=== PATIENT | male | born 1970 | race Caucasian/White ===

== ENCOUNTER 2021-06-01 23:27 | Emergency (ER) | payer OTHER, BC ==
[2021-06-01 23:58] VITALS: O2SAT 99
[2021-06-02] MEDS ORDERED: Cleocin Phosphate IV 600 MG/4 ML IM STA
[2021-06-02] MEDS ORDERED: DELTASONE 20 MG PO ONE (00:01)
[2021-06-02] MEDS ORDERED: Cleocin Phosphate IV 600 MG/4 ML ONE (00:05)
[2021-06-02] MEDS ORDERED: DELTASONE 20 MG ONE (00:06)
--- NOTE | 2021-06-02 00:32 | ERPHSYRPT ---
- History of Present Illness Time Seen by Provider: 06/01/21 23:50 Source: patient Exam Limitations: no limitations Patient Subjective Stated Complaint: Patient c/o left lower arm pain. States "I thought I hit it at work last but now I'm not so sure if that is what is going on." Triage Nursing Assessment: Left lower posterior arm is red and warm to touch. Skin intact; no breaks in skin noted. Able to move LUE WNL without difficulties. Radial pulse present. Physician History: Patient is a 50-year-old male presents to our ED for evaluation of a tender raised rash to the dorsal aspect of his left forearm. Patient observed the rash today. Patient denies trauma. No fevers. Patient declined pain medication. Pain described as a mild soreness. No radiation. Pain worse with palpation. No bony tenderness. Patient denies history of the same. Patient voices no other complaints or concerns at this time. Timing/Duration: today Severity: moderate Modifying Factors: Improves With: nothing Associated Symptoms: denies symptoms, No nausea, No vomiting, No diaphoresis, No cough, No fever, No headaches, No syncope Allergies/Adverse Reactions: No Known Drug Allergies Allergy (Unverified 06/01/21 23:45) Hx Tetanus, Diphtheria Vaccination/Date Given: Yes (tetanus unknown) Hx Influenza Vaccination/Date Given: No Hx Pneumococcal Vaccination/Date Given: No Immunizations Up to Date: Yes Travel Risk - International Travel Have you traveled outside of the country in past 3 weeks: No - Coronavirus Screening Are you exhibiting any of the following symptoms?: No Close contact with a COVID-19 positive Pt in past 14-21 Days: No - Vaccine Status Have you recieved a Covid-19 vaccination: Yes Screen Making Supervisor: Moderna - Vaccination Dates Date of 2cond Vaccination (if applicable): 12/07/20 - Review of Systems Constitutional: No Symptoms, No Fever, No Chills Eyes: No Symptoms Ears, Nose, & Throat: No Symptoms Respiratory: No Symptoms, No Cough, No Dyspnea Cardiac: No Symptoms, No Chest Pain, No Edema, No Syncope Abdominal/Gastrointestinal: No Symptoms, No Abdominal Pain, No Nausea, No Vomiting, No Diarrhea Genitourinary Symptoms: No Symptoms, No Dysuria Musculoskeletal: No Symptoms, No Back Pain, No Neck Pain Skin: No Symptoms, No Rash Neurological: No Symptoms, No Dizziness, No Focal Weakness, No Sensory Changes Psychological: No Symptoms Endocrine: No Symptoms Hematologic/Lymphatic: No Symptoms Immunological/Allergic: No Symptoms All Other Systems: Reviewed and Negative - Past Medical History Pertinent Past Medical History: No Neurological History: No Pertinent History ENT History: No Pertinent History Cardiac History: Hypertension Respiratory History: No Pertinent History Endocrine Medical History: No Pertinent History Musculoskeletal History: No Pertinent History GI Medical History: No Pertinent History History: No Pertinent History Psycho-Social History: No Pertinent History Male Reproductive Disorders: No Pertinent History Other Medical History: Abcess on epiglottis in 2002 - Past Surgical History Past Surgical History: Yes Neuro Surgical History: No Pertinent History Cardiac: No Pertinent History Respiratory: Tracheostomy Gastrointestinal: No Pertinent History Genitourinary: No Pertinent History Musculoskeletal: No Pertinent History Male Surgical History: No Pertinent History - Social History Smoking Status: Current every day smoker How long have you smoked: 17 y.o. Exposure to second hand smoke: No Drug Use: none - Nursing Vital Signs Nursing Vital Signs: Initial Vital Signs Temperature 98.1 F 06/01/21 23:47 Pulse Rate 104 H 06/01/21 23:47 Respiratory Rate 20 06/01/21 23:47 Blood Pressure 195/119 06/01/21 23:47 O2 Sat by Pulse Oximetry 99 06/01/21 23:47 Pain Scale Pain Intensity 5 - Physical Exam General Appearance: no apparent distress, alert Eye Exam: PERRL/EOMI, eyes nml inspection Ears, Nose, Throat Exam: normal ENT inspection, TMs normal, pharynx normal, moist mucous membranes Neck Exam: normal inspection, non-tender, supple, full range of motion Respiratory Exam: normal breath sounds, lungs clear, No respiratory distress Cardiovascular Exam: regular rate/rhythm, normal heart sounds, normal peripheral pulses Gastrointestinal/Abdomen Exam: soft, normal bowel sounds, No tenderness, No mass Back Exam: normal inspection, normal range of motion, No CVA tenderness, No vertebral tenderness Extremity Exam: normal inspection, normal range of motion, pelvis stable Neurologic Exam: alert, oriented x 3, cooperative, normal mood/affect, nml cerebellar function, nml station & gait, sensation nml, No motor deficits Skin Exam: normal color, warm, dry, No rash Lymphatic Exam: No adenopathy SpO2: 99 - Course Nursing assessment & vital signs reviewed: Yes Ordered Tests: Medication Summary Discontinued Medications Generic Name Dose Route Start Last Admin Trade Name Freq PRN Reason Stop Dose Admin Clindamycin Phosphate 600 mg 06/02/21 00:00 06/02/21 00:07 Clindamycin Phosphate 600 Mg/4 Ml Vial IM 06/02/21 00:01 600 mg ONCE STA Administration Clindamycin Phosphate Confirm 06/02/21 00:05 Clindamycin Phosphate 600 Mg/4 Ml Vial Administered 06/02/21 00:06 Dose 600 mg .ROUTE .STK-MED ONE Prednisone 60 mg 06/02/21 00:01 06/02/21 00:07 Prednisone 20 Mg Tablet PO 06/02/21 00:02 60 mg STAT ONE Administration Prednisone Confirm 06/02/21 00:06 Prednisone 20 Mg Tablet Administered 06/02/21 00:07 Dose 60 mg .ROUTE .STK-MED ONE - Progress Progress: improved Progress Note: Patient reassessed. He feels well. Patient declined pain medication. Patient received a dose of prednisone as well as intramuscular clindamycin. We are treating for both cellulitis and possible contact dermatitis. A prescription for the same was forwarded to patient's pharmacy. Patient agrees to follow-up with his primary care doctor within 48 hours for reevaluation. Portions of this note were created with voice recognition technology. There may be grammatical, spelling, punctuation or sound alike errors 06/02/21 00:36 Counseled pt/family regarding: diagnosis, need for follow-up - Departure Departure Disposition: Home Clinical Impression: Contact dermatitis, Cellulitis, Hypertension Condition: Stable Critical Care Time: No Referrals: FARHAT TANNER MD [Primary Care Provider] - Additional Instructions: Please follow-up with for reassessment of your blood pressure and progress of your cellulitis/contact dermatitis. Follow-up within [address] Tanner Discharge/Care Plan AGUSTO KENT was seen on 06/02/21 in the Emergency Room. The patient was counseled regarding Diagnosis,Lab results, Imaging studies, need for follow up and when to return to the Emergency Room. Prescriptions given: Discharge Note I have spoken with the patient and/or caregivers. I have explained the patient's condition, diagnosis and treatment plan based on the information available to me at this time. I have answered the patient's and/or caregiver's questions and addressed any concerns. The patient and/or caregivers have as good understanding of the patient's diagnosis, condition and treatment plan as can be expected at this point. The vital signs have been stable. The patient's condition is stable and appropriate for discharge from the emergency department. The patient will pursue further outpatient evaluation with the primary care phys ician or other designated or consulting physician as outlined in the discharge instructions. The patient and/or caregivers are agreeable to this plan of care and follow-up instructions have been explained in detail. The patient and/or caregivers have received these instruction. The patient/and or caregivers are aware that any significant change in condition or worsening of symptoms should prompt an immediate return to this or the closest emergency department or call 911. Prescriptions: Clindamycin HCl 150 mg [Cleocin 150 mg Capsule] 2 cap PO QID 7 Days #56 ca p Prednisone 10 mg [Deltasone 10 mg] 40 mg PO DAILY 3 Days #12 tablet
[2021-06-02 00:55] VITALS: BP 178/108; PULSE 100
== END 2021-06-02 00:50 | disposition home or self-care (01) ==
LOC: ED 23:27
DX: L25.9 Unspecified contact dermatitis, unspecified cause (principal); L03.114 Cellulitis of left upper limb; I10 Essential (primary) hypertension
CPT/HCPCS: 96372; 99283; A9270-GY